=== PATIENT | female | born 1995 | race Caucasian/White ===

== ENCOUNTER 2021-01-09 21:32 | Emergency (ER) | payer BC ==
[2021-01-09 23:41] LABS: HEMOGLOBIN 13.3 gm/dl (12.3-15.3); RED BLOOD COUNT 4.5 M/UL (4.00-5.10); WHITE BLOOD COUNT 5.8 K/UL (4.5-11.0)
[2021-01-10] LABS: BUN/CREATININE RATIO 17 (0-10)
[2021-01-10] MEDS ORDERED: ADULT GLYCERIN1 EACH PR (02:07)
[2021-01-10] MEDS ORDERED: COLACE100 MG PO (02:07)
[2021-01-10] MEDS ORDERED: CITRATE OF MAG296 ML PO (02:07)
== END 2021-01-10 02:17 | disposition home or self-care (01) ==
LOC: ER1 21:32
PROVIDERS: Physician Assistant
DX: K59.00 Constipation, unspecified (principal); R10.11 Right upper quadrant pain
CPT/HCPCS: 80053; 81001; 83605; 83690; 84703; 85025; 87086; 99284; Q9967